=== PATIENT | male | born 1950 | race Caucasian/White ===

== ENCOUNTER → 2020-02-14 10:47 | Outpatient (CLI) | payer MEDICARE, OTHER ==
[2013-11-24 12:29] VITALS: BMI 31.0
[~2020-02-14 10:47] MED LIST: ASPIRIN EC81 M1 PO; FISH OIL 1,0001 CA1 PO; HYZAAR 100-25 T1 TAB PO; LOVASTATIN10 MG PO; NITROSTAT0.4 MG SL; ZANTAC150 MG PO
== END | disposition home or self-care (01) ==
LOC: D.HCCECHO 10:47
PROVIDERS: ATTEND Internal Medicine Cardiovascular Disease
DX: I34.0 Nonrheumatic mitral (valve) insufficiency (principal)